=== PATIENT | female | born 1960 | race Caucasian/White ===

== ENCOUNTER → 2017-04-28 | Day surgery (SDC) | payer OTHER ==
[~2017-04-28] VITALS: Ht 157.5 cm; Wt 89.0 kg
[~2017-04-28] MED LIST: AMIT50TA3 PO; BACL20TA PO; CARV12.5 PO; CHLORHEXIDINE GLUCONATE 2 % 1 PACK (2 CLOTHS) TOPICAL PRN; CLINDAMYCIN 600 MG/NS 100 ML IV PRN; CLINDAMYCIN PHOS 900 MG/6 ML VIAL ONE; ESTR0.07 T-DERMAL; HYDR50TA94 PO; HYDROmorphone HCL PF 1 MG/ML VIAL ONE; INSULIN HUMAN REGULAR 1,000 UNITS/10 ML VIAL SQ PRN; LACTATED RINGER'S 1000 ML IV PRN; LEVO.1 PO; LIDOCAINE 1%/EPINEPHrine 1:100,000 SOLN 20 ML VIAL ONE; LORA2TAB7 PO; METOPROLOL TARTRATE 25 MG TAB PO PRN; MIDAZOLAM HCL 2 MG/2 ML VIAL ONE; MONT10TA4 PO; MORPHINE SULFATE 8 MG/ML INJ ONE; OXYMETAZOLINE HCL 0.05% 15 ML NASAL SPRAY ONE; PANT40TA3 PO; POVIDONE IODINE 5% (ANTISEPSIS KIT) 4 APPLICATIONS EACH NARE PRN; PRED20 PO; RANI150C PO; SODIUM CHLORID 0.9% 500 ML IV PRN; TRAM50 PO; TRIA1CAP6 PO; TRIA37.5 PO; VENTAER INH; fentaNYL CITRATE 250 MCG/5 ML AMP ONE
--- NOTE | 2017-04-28 11:13 | MP ---
cc: KENNETH DORMAN M.D. DATE OF SURGERY April 28, [address] Kenneth dorman PREOPERATIVE DIAGNOSES 1. Nasal airway obstruction. 2. Nasal septal deviation. 3. Hypertrophy of inferior turbinates. POSTOPERATIVE DIAGNOSES 1. Nasal airway obstruction. 2. Nasal septal deviation. 3. Hypertrophy of inferior turbinates. OPERATION PERFORMED 1. Open repair nasal septal fracture. 2. Bilateral submucosal resection of inferior turbinates. INDICATIONS Documented in the history and physical. DESCRIPTION OF OPERATION The patient was taken to OR #2 and placed in the supine position. Following induction of general anesthesia and intubation the nose was packed bilaterally with cotton pledgets saturated in 0.05% Oxymetazoline. The nasal septum and inferior turbinates were injected with a total of 12 mL of 1% Xylocaine with epinephrine 1:100,000. She was then prepped and draped for surgery. The packing was removed and a hemitransfixion incision was made in the left nasal vestibule and through this incision the septal mucosa was elevated as far as the junction of the bony cartilaginous septum. This revealed the quadrangular cartilage which showed ample evidence of old cartilaginous fracture with numerous long healed cartilage fragments which were obstructing the nasal airway bilaterally. A cumulative area of 2 x 2 cm was removed preserving 1.5 cm dorsal and caudal cartilaginous struts. When this was completed, the mucosa was elevated from the bony septum and the maxillary crest and these were removed using Gambrills-Guzman forceps on the bony septum and a 6-mm Julio chisel on the maxillary crest. The incision was then closed with a running suture of 4-0 chromic and the mucosal layers of septum were approximated to each other with a quilting stitch of 4-0 plain gut. The inferior turbinates were fractured out medially and stab incisions were made along their inferior surfaces. Through these incisions the submucosal soft tissue was reduced using a curette and preserving the conchal bone. The incision was then cauterized using the suction Bovie at 35 orozco and the remnants of the inferior turbinates were then relateralized to the lateral nasal wall. The nose was then packed with 5.5 cm Rapid Rhino packs. Each was inflated with 5 mL of air and the procedure was terminated. The patient was reversed from anesthesia and taken to Recovery in good condition. There were no complications. Blood loss was 60 mL. MD MONICA Lynn/ADRIANA /10:57 AM /11:13 AM
[2017-04-28 14:15] VITALS: BP 140/82; PULSE 67; RESP 16; TEMP 97.8; O2SAT 94
== END | disposition home or self-care (01) ==
LOC: PHSDC 06:31
PROVIDERS: ATTEND Otolaryngology
DX: J34.2 Deviated nasal septum (principal); J34.3 Hypertrophy of nasal turbinates
CPT/HCPCS: 00160; 21335; 30140; J1170; J2250; J2270; J3010; J7120